=== PATIENT | female | born 1985 | race Caucasian/White ===

== ENCOUNTER 2016-10-09 15:25 | Emergency (ER) | payer OTHER ==
[2016-10-09 16:00] LABS: BASOPHIL % 0.8 % (0-2); PLATELET COUNT 379 x10^3mcL (130-400); RED CELL DISTRIBUTION WIDTH 13.7 % (11.5-14.5)
[2016-10-09 16:17] LABS: ALBUMIN 4.3 g/dL (3.4-5.0); ALKALINE PHOSPHATASE 93 U/L (46-116); ALT/SGPT 41 U/L (14-59); AST/SGOT 26 U/L (15-37); BILIRUBIN TOTAL 0.3 mg/dL (0.20-1.00); CHLORIDE SERUM 100 mmol/L (98-107); GFR1 > 60 mL/min; GLUCOSE SERUM 100 mg/dL (74-106); LIPASE 103 IU/L (73-393); SODIUM SERUM 137 mmol/L (136-145); TOTAL PROTEIN, SERUM 7.9 g/dL (6.4-8.2)
[2016-10-09 19:04] VITALS: BP 137/93
[2016-10-09 19:59] LABS: MAGNESIUM 2.1 mg/dL (1.8-2.4); PHOSPHOROUS 1.9 mg/dL (2.5-4.9)
[2016-10-09 20:00] LABS: CHOLESTEROL/HDL RATIO 2.9
[2016-10-09 20:06] LABS: T3 TOTAL 1.47 ng/mL
[2016-10-09 20:09] LABS: FREE T4 1.22 ng/dL (0.76-1.46); FREE THYROXINE INDEX 4.2 ug/dL (1.4-4.5)
== END 2016-10-09 19:04 | disposition left against medical advice (07) ==
LOC: ED 15:25 → DU 18:19 → ED 18:19
PROVIDERS: Emergency Medicine; Family Medicine
DX: N83.201 Unspecified ovarian cyst, right side (principal)
CPT/HCPCS: 83880; 84439; J1885; J2270; J2405

== ENCOUNTER 2016-10-10 11:31 | Inpatient (IN) | payer OTHER ==
[~2016-10-10] VITALS: Ht 160 cm; Wt 88.0 kg
[2016-10-10 12:04] LABS: BASOPHIL % 0.7 % (0-2); PLATELET COUNT 330 x10^3mcL (130-400)
[2016-10-10 12:16] LABS: CALCIUM 8.8 mg/dL (8.5-10.1); CARBON DIOXIDE 24.5 mmol/L (21-32); CHLORIDE SERUM 104 mmol/L (98-107); CREATININE SERUM 1.1 mg/dL (0.6-1.0); GFR1 > 60 mL/min; GLUCOSE SERUM 102 mg/dL (74-106); POTASSIUM SERUM 3.8 mmol/L (3.5-5.1); SODIUM SERUM 139 mmol/L (136-145)
[2016-10-10 12:21] LABS: ALBUMIN 3.7 g/dL (3.4-5.0); ALKALINE PHOSPHATASE 79 U/L (46-116); ALT/SGPT 42 U/L (14-59); AST/SGOT 22 U/L (15-37); BILIRUBIN TOTAL 0.27 mg/dL (0.20-1.00); TOTAL PROTEIN, SERUM 7.5 g/dL (6.4-8.2)
[2016-10-10 13:18] VITALS: BP 119/71
[2016-10-10 14:04] LABS: CHOLESTEROL/HDL RATIO 2.9; PHOSPHOROUS 1.9 mg/dL (2.5-4.9)
[2016-10-10 14:15] LABS: T3 TOTAL 1.18 ng/mL
[2016-10-10 14:30] LABS: FREE T4 1.16 ng/dL (0.76-1.46); FREE THYROXINE INDEX 3.9 ug/dL (1.4-4.5); T4(THYROXINE) 10.7 ug/dL (4.7-13.3)
[2016-10-10 18:15] VITALS: BP 148/91
[2016-10-10 18:35] LABS: microscopic required? NO
[2016-10-10 18:44] LABS: urine erythrocyte NEGATIVE (NEGATIVE)
[2016-10-11 06:11] VITALS: BP 124/79
[2016-10-11 06:27] LABS: CALCIUM 8.4 mg/dL (8.5-10.1); CARBON DIOXIDE 23.9 mmol/L (21-32); CHLORIDE SERUM 104 mmol/L (98-107); CREATININE SERUM 0.9 mg/dL (0.6-1.0); GFR1 > 60 mL/min; GLUCOSE SERUM 117 mg/dL (74-106); POTASSIUM SERUM 4.2 mmol/L (3.5-5.1); SODIUM SERUM 136 mmol/L (136-145)
[2016-10-11 06:33] LABS: BASOPHIL % 0.1 % (0-2); PLATELET COUNT 331 x10^3mcL (130-400)
[2016-10-11 09:51] VITALS: BP 123/83
[2016-10-11 17:32] VITALS: BP 118/78
== END 2016-10-11 19:05 | disposition left against medical advice (07) | DRG 513 ==
LOC: ED 11:31 → MU 12:11 → DU 12:11 → MU 10-11 11:41
PROVIDERS: Emergency Medicine; Obstetrics & Gynecology; ADMIT Family Medicine
PROC: 0UT00ZZ Resection of Right Ovary, Open Approach (ICD-10-PCS; principal; 2016-10-10 19:00)
DX: D27.0 Benign neoplasm of right ovary (principal); E83.39 Other disorders of phosphorus metabolism; E78.5 Hyperlipidemia, unspecified; M51.26 Other intervertebral disc displacement, lumbar region; D72.829 Elevated white blood cell count, unspecified; E66.01 Morbid (severe) obesity due to excess calories; Z68.34 Body mass index [BMI] 34.0-34.9, adult
CPT/HCPCS: 84439; 94150; J0330; J0690; J1170; J1885; J2250; J2270; J2405; J2704; J2710; J3010; J3490; J7030; J7120; Q0092